=== PATIENT | female | born 1990 | race Caucasian/White ===

== ENCOUNTER 2018-12-07 12:36 | Outpatient (CLI) | payer OTHER ==
[~2018-12-07] VITALS: Ht 167.6 cm; Wt 123.1 kg
[~2018-12-07 12:36] MED LIST: ACHD5005 PO; CYCL10TA9 PO; FLC150T; FLX10C; HYDR-1231 PO; LISD50CA; NAPR-243 PO
[2018-12-07] MEDS ORDERED: OMEP40CA36 PO (12:54)
[2018-12-07] MEDS ORDERED: VITA1CAP PO (12:54)
[2018-12-07] MEDS ORDERED: DULO30CA3 PO (12:54)
[2018-12-07] MEDS ORDERED: RANI-514 PO (12:54)
[2018-12-07] MEDS ORDERED: CARB200T6 PO (12:54)
[2018-12-07] MEDS ORDERED: OMG1KC PO (12:54)
[2018-12-07] MEDS ORDERED: L.AC1CAP6 PO (12:54)
[2018-12-09] MEDS ORDERED: SUCR1TAB36 PO (14:30)
== END 2018-12-07 12:59 | disposition home or self-care (01) ==
LOC: PREOP 12:36
PROVIDERS: ATTEND Surgery
DX: Z01.818 Encounter for other preprocedural examination (principal)

== ENCOUNTER 2018-12-09 13:05 | Day surgery (SDC) | payer OTHER ==
[~2018-12-09] VITALS: Ht 167.6 cm; Wt 123.1 kg
[~2018-12-09 13:05] MED LIST changes: -SUCR1TAB36 PO
[2018-12-09] MEDS ORDERED: NS IV 500 ML 500 ML IV PRN (13:22)
[2018-12-09] MEDS ORDERED: NS IV 500 ML 500 ML ONE (13:24)
[2018-12-09] MEDS ORDERED: MIDAZOLAM 2 MG/2 ML (VERSED) VIAL IVP ONE (13:30)
[2018-12-09] MEDS ORDERED: HURRICAINE EXT TUBE (BENZOCAINE) XX PRN (13:30)
[2018-12-09] MEDS ORDERED: LIDOCAINE JELLY 2% 6 ML SYRINGE MM PRN (13:30)
[2018-12-09] MEDS ORDERED: fentaNYL INJECTION 100 MCG/2 ML AMP IVP ONE (13:30)
[2018-12-09] MEDS ORDERED: LIDOCAINE JELLY 2% 6 ML SYRINGE ONE (13:41)
[2018-12-09] MEDS ORDERED: MIDAZOLAM 2 MG/2 ML (VERSED) VIAL ONE ×4 (13:41)
[2018-12-09] MEDS ORDERED: fentaNYL INJECTION 100 MCG/2 ML AMP ONE (13:41)
[2018-12-09] MEDS ORDERED: HURRICAINE EXT TUBE (BENZOCAINE) ONE (13:41)
[2018-12-09 13:45] VITALS: BP 112/74
[2018-12-09 14:25] VITALS: BP 119/77
--- NOTE | 2018-12-09 14:27 | Progress Note-Pre Operative ---
Pre-Operative Progress Note H&P Reviewed The H&P was reviewed, patient examined and no changes noted. Date Seen by Provider: December 09, 2018 Time Seen by Provider: 13:30 Date H&P Reviewed: December 09, 2018 Time H&P Reviewed: 13:30 Pre-Operative Diagnosis: GERD RICHARD SMART MD December 09, 2018 14:27
--- NOTE | 2018-12-09 14:27 | Conscious Sedation/ASA ---
Conscious Sedation Pre-Proced Time 13:30 ASA Score 2 For ASA 3 and 4: Consider anesthesia and medical clearance. Also, for patients with a history of failed moderate sedation consider anesthesia. Airway Lungs Heart ASA score ASA 1: a normal healthy patient ASA 2: a patient with a mild systemic disease (mid diabetes, controlled hypertension, obesity ASA 3: a patient with a severe systemic disease that limits activity (angina, COPD, prior Myocardial infarction) ASA 4: a patient with an incapacitating disease that is a constant threat to life (CHF, renal failure) ASA 5: a moribund patient not expected to survive 24 hrs. (ruptured aneurysm) ASA 6: a declared brain- patient whose organs are being harvested. For emergent operations, add the letter E after the classification Mallampati Classification Grade 3 Sedation Plan Analgesia, Amnesia, Plan communicated to team members, Discussed options with patient/fam, Discussed risks with patient/fam The patient is an appropriate candidate to undergo the planned procedure, sedation, and anesthesia. The patient immediately re-assessed prior to indication. RICHARD SMART MD December 09, 2018 14:26
--- NOTE | 2018-12-09 14:29 | Progress Note-Post Operative ---
Post-Operative Progess Note Surgeon (s)/Financial Foundations Associate (s) Surgeon RICHARD SMART MD Financial Foundations Associate: none Pre-Operative Diagnosis GERD Post-Operative Diagnosis reflux esophagitis(stage 2), small-moderate HH(2cm), moderate gastritis. Procedure & Operative Findings Date of Procedure 12/09/18 Procedure Performed/Findings EGD with bx. Anesthesia Type cs Estimated Blood Loss Estimated blood loss (mL): minimal Specimens/Packing Specimens Removed ge jxn, antrum RICHARD SMART MD December 09, 2018 14:29
[2018-12-09] MEDS ORDERED: ACETAMINOPHEN 325 MG TABLET PO PRN (14:30)
[2018-12-09] MEDS ORDERED: ONDANSETRON 4 MG/2 ML (SDV) Z0FRAN IV PRN (14:30)
[2018-12-09] MEDS ORDERED: HYDROcodone/APAP 5 MG/325 MG (LORTAB) TAB PO PRN (14:30)
[2018-12-09] MEDS ORDERED: morphine INJ 10 MG/ML 1ML (SYR OR VIAL) IV PRN (14:30)
[2018-12-09] MEDS ORDERED: SUCR1TAB36 PO (14:30)
--- NOTE | 2018-12-09 14:30 | Discharge Inst-Surgical ---
D/C Lap Instructions-KIDO New, Converted, or Re-Newed RX: RX on Chart Follow Up Appt in 6 weeks Activity as tolerated High Fiber Diet 25g or more per day Avoid Alcohol, Caffeine, Spicy [place] and Acid foods. Drink 64 fluid oz or more of fluids per day. Symptoms to Report: Fever over 101 degree F, Nausea/Vomiting If any problems/questions: Contact your physician or go to Emergency Room RICHARD SMART MD December 09, 2018 14:30
[2018-12-09 14:50] VITALS: BP 130/80
[2018-12-09 14:55] VITALS: BP 130/80
--- NOTE | 2018-12-09 23:00 | OPERATIVE REPORT ---
DATE OF SERVICE: 12/09/2018 ATTENDING PRIMARY SERVICE DOG TRAINER: Rosangela Deal APRN PREOPERATIVE DIAGNOSIS: Gastroesophageal reflux disease. POSTOPERATIVE DIAGNOSES: Reflux esophagitis stage II, small to moderate size hiatal hernia approximately 2 cm in size, moderate gastritis. No distal obstructions. PROCEDURE: EGD with biopsy. SURGEON: Richard Smart MD ANESTHESIA: Conscious sedation. ESTIMATED BLOOD LOSS: Minimal. FINDINGS: As above in the postop. DISPOSITION: The patient tolerated the procedure well. INDICATIONS: The patient is a 28-year-old female referred over to us for epigastric pain and reflux. She has a known history gastroesophageal reflux disease for the past 6 to 12 months and has been placed on different medications. She states that this has worsened with epigastric burning sensation and this has also progressed to nausea and vomiting after eating a meal. She does not report any hematemesis, no coffee ground emesis. However, does feel a burning sensation in the epigastric region. She was initially started on Zantac and then recently started on Prilosec. She does have some risk factors, which include smoking as well as caffeinated beverages. DESCRIPTION OF PROCEDURE: The patient was brought to the endoscopy suite in the left lateral decubitus position. After adequate IV pain and sedative medications and conscious sedation anesthesia the mouthpiece was applied. Endoscope was placed in the mouth, visualizing the pharynx and hypopharyngeal region. Vocal cords, epiglottis and vallecula identified and appeared to be normal. The endoscope was then intubated into the esophageal opening and esophagus insufflated. The endoscope was then advanced to the first, second and third portion of esophagus at the level of the GE junction, reflux esophagitis stage II identified. There were no ulcers or strictures identified in this region. A biopsy was taken using forceps with visualization of good hemostasis. The endoscope was then easily advanced in the stomach and endoscope retroflexed, visualizing a small to moderate size hiatal hernia approximately 2 cm in size. There was moderate severity gastritis. No formal ulcerations, polyps or any neoplasms. A biopsy was taken of the antrum to rule out H. pylori with visualization of good hemostasis. Endoscope was then advanced to the pylorus and first and second portion of the duodenum, which appeared normal with no ulcerations or distal obstructions. The endoscope was then slowly withdrawn while taking a second look and suctioning residual air with no additional findings. The patient tolerated the procedure well. We will recommend the necessary lifestyle and diet accommodation including smoking cessation as well as avoidance of caffeinated beverages, spicy, greasy and acidic foods. We also recommend small more frequent meals and avoidance of eating at night as well as head elevation while lying supine. We do want her to continue to take the Prilosec as well as Zantac and we will also add Carafate 1 gram q.i.d. If she has continued reflux and regurgitation despite maximal medical therapy. Our recommendation based on her body mass index would be to do a hiatal hernia repair; however, combined this with a gastric sleeve resection for weight loss, which is also a contributing factor to her gastroesophageal reflux disease. We will discuss this in the office and have her follow up. Job ID: [id number] DocumentID: [id number] Dictated Date: 12/09/2018 14:19:58 Alteration Tailor Apprentice Date: 12/09/2018 22:59:29 Dictated By: RICHARD SMART MD MTDD
== END 2018-12-09 14:55 | disposition home or self-care (01) ==
LOC: ENDO 13:05
PROVIDERS: ATTEND Surgery
DX: K21.0 Gastro-esophageal reflux disease with esophagitis (principal); K44.9 Diaphragmatic hernia without obstruction or gangrene; K29.50 Unspecified chronic gastritis without bleeding; B96.81 Helicobacter pylori [H. pylori] as the cause of diseases classified elsewhere; F17.210 Nicotine dependence, cigarettes, uncomplicated
CPT/HCPCS: 84703

== ENCOUNTER → 2018-12-09 | Outpatient (CLI) | payer OTHER ==
[~2018-12-09] MED LIST changes: +CARB200T6 PO; +DULO30CA3 PO; +L.AC1CAP6 PO; +OMEP40CA36 PO; +OMG1KC PO; +RANI-514 PO; +SUCR1TAB36 PO; +VITA1CAP PO
[2018-12-09 09:36] LABS: BASOPHILS % (AUTO) 0 % (0-10); EOSINOPHILS # (AUTO) 0.1 10^3/uL (0.0-0.3); EOSINOPHILS % (AUTO) 1 % (0-10); HEMATOCRIT 38 % (35-52); HEMOGLOBIN 12.9 G/DL (11.5-16.0); LYMPHOCYTES # (AUTO) 2.7 X 10^3 (1.0-4.0); LYMPHOCYTES % (AUTO) 34 % (12-44); MEAN CORPUSCULAR HEMOGLOBIN 31 PG (25-34); MEAN CORPUSCULAR HGB CONC 34 G/DL (32-36); MEAN CORPUSCULAR VOLUME 93 FL (80-99); MEAN PLATELET VOLUME 9.7 FL (7.4-10.4); MONOCYTES # (AUTO) 0.6 X 10^3 (0.0-1.0); MONOCYTES % (AUTO) 8 % (0-12); NEUTROPHILS # (AUTO) 4.5 X 10^3 (1.8-7.8); NEUTROPHILS % (AUTO) 57 % (42-75); PLATELET COUNT 266 10^3/uL (130-400); RED CELL DISTRIBUTION WIDTH 11.9 % (10.0-14.5); WHITE BLOOD COUNT 7.9 10^3/uL (4.3-11.0)
[2018-12-09 09:39] LABS: BILIRUBIN,URINE NEGATIVE (NEGATIVE); CLARITY,URINE SLIGHTLY CLOUDY; COLOR,URINE YELLOW; GLUCOSE, URINE (UA) NEGATIVE (NEGATIVE); KETONES,URINE NEGATIVE (NEGATIVE); LEUKOCYTE ESTERASE ,URINE 1+ (NEGATIVE); NITRITE,URINE NEGATIVE (NEGATIVE); PH,URINE 7 (5-9); PROTEIN,URINE NEGATIVE (NEGATIVE); UROBILINOGEN,URINE NORMAL (NORMAL)
--- NOTE | 2018-12-09 09:54 | Diagnostic Imaging Report ---
PROCEDURE: CT abdomen and pelvis with and without contrast. TECHNIQUE: Precontrast acquisitions were acquired through the abdomen and pelvis. Multiple contiguous axial images were obtained through the abdomen and pelvis after the administration of intravenous contrast. Auto Exposure Controls were utilized during the CT exam to meet ALARA standards for radiation dose reduction. INDICATION: Abdominal pain, vomiting and diarrhea. COMPARISON: No prior studies are available for comparison. FINDINGS: Lung bases are clear. No discrete liver mass is identified. The gallbladder is surgically absent. No biliary duct dilatation is seen. The pancreas and spleen are unremarkable. No adrenal mass is detected. No renal calculi or hydronephrosis is identified. The aorta is nonaneurysmal. No central retroperitoneal or mesenteric lymphadenopathy is detected. The small and large bowel loops appear to be normal in caliber. There is no obstruction. The appendix is not visualized but no inflammatory changes in the right lower quadrant are identified. The uterus does contain an IUD. Unopacified bladder is unremarkable. There is no ascites. No pelvic lymphadenopathy is seen. IMPRESSION: Essentially unremarkable CT of the abdomen and pelvis. No acute abnormality is detected. Dictated by: Dictated on workstation # [id number]
[2018-12-09 09:56] LABS: ALANINE AMINOTRANSFERASE 19 U/L (0-55); ALBUMIN 3.6 GM/DL (3.2-4.5); ALKALINE PHOSPHATASE 93 U/L (40-136); BILIRUBIN,TOTAL 0.3 MG/DL (0.1-1.0); BUN/CREATININE RATIO 12; CALCIUM 8.8 MG/DL (8.5-10.1); CARBON DIOXIDE 24 MMOL/L (21-32); CHLORIDE 107 MMOL/L (98-107); CHOLESTEROL 264 MG/DL (< 200); CREATININE SERUM 0.67 MG/DL (0.60-1.30); GFR ESTIMATED > 60; GLUCOSE 89 MG/DL (70-105); HDL CHOLESTEROL 39 MG/DL (40-60); SODIUM 138 MMOL/L (135-145); TOTAL PROTEIN 6.2 GM/DL (6.4-8.2); TRIGLYCERIDES 267 MG/DL (<150); VLDL CHOLESTEROL 53 MG/DL (5-40)
[2018-12-09 10:02] LABS: BACTERIA,URINE TRACE /HPF
== END ==
LOC: RAD 08:14
PROVIDERS: ATTEND Registered Nurse
DX: K21.9 Gastro-esophageal reflux disease without esophagitis (principal); F41.9 Anxiety disorder, unspecified; K52.9 Noninfective gastroenteritis and colitis, unspecified; Z90.49 Acquired absence of other specified parts of digestive tract
CPT/HCPCS: 36415; 74178; 80053; 80061; 81000; 84443; 85025; 86677; 87088

== ENCOUNTER 2018-12-30 11:18 | Outpatient (RCR) | payer OTHER ==
[~2018-12-30 11:18] MED LIST changes: +SUCR1TAB36 PO
== END 2019-03-30 | disposition home or self-care (01) ==
LOC: CARD 11:18
PROVIDERS: ATTEND Registered Nurse
DX: R00.2 Palpitations (principal); F41.9 Anxiety disorder, unspecified; E66.9 Obesity, unspecified; Z72.0 Tobacco use
CPT/HCPCS: 93005; 93225; 93226

== ENCOUNTER 2019-04-12 13:48 | Emergency (ER) | payer OTHER, MEDICAID ==
[~2019-04-12] VITALS: Ht 167 cm; Wt 125.0 kg
--- NOTE | 2019-04-12 14:13 | ED GU-Female ---
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 Stated Complaint: VAGINAL BLEEDING;8 WKS History of Present Illness Date Seen by Provider: Apr 12, 2019 Initial Comments With in 2007, blood type documented as A+ Allergies and Home Medications Allergies Coded Allergies: No Known Drug Allergies (Unverified , 12/07/18) Home Medications Diphenhydramine HCl 50 Mg Capsule, 50 MG PO HS, (Reported) Famotidine 20 Mg Tablet, 20 MG PO DAILY, (Reported) Vit #76/Iron,Carb/FA 1 Each Tablet, 1 EACH PO BID, (Reported) Vitamin B Complex 1 Each Capsule, 2 EACH PO DAILY, (Reported) Past Ilnihxo-Bzbkmj-Fokael Hx Patient Social History Alcohol Use: Denies Use Recreational Drug Use: No Smoking Status: Former Smoker Type Used: Cigarettes 2nd Hand Smoke Exposure: Yes Recent Hopitalizations: No Immunizations Up To Date Date of Influenza Vaccine: Apr 25, 2018 Seasonal Allergies Seasonal Allergies: No Past Medical History Surgeries: Yes (, EYE SURGERY WHEN A BABY) Gallbladder Respiratory: No Cardiac: No Neurological: Yes (NONE SINCE AGE 10) Seizure Disorder Reproductive Disorders: No Sexually Transmitted Disease: No HIV/AIDS: No Genitourinary: No Gastrointestinal: Yes (N/V) Gastroesophageal Reflux Musculoskeletal: No Endocrine: No HEENT: Yes (GLASSES) Loss of Vision: Bilateral Hearing Impairment: Denies Cancer: No Psychosocial: Yes Anxiety, Bipolar, Depression Integumentary: Yes Psoriasis Blood Disorders: No Adverse Reaction/Blood Tranf: No (N/A) Physical Exam Vital Signs Vital Signs - First Documented 04/12/19 14:05 Temp 36.7 Pulse 93 Resp 18 B/P (MAP) 133/89 (104) Capillary Refill : Height, Weight, BMI Height: 5'6.00" Weight: 271lbs. 6.0oz. 123.694834aq; 43.8 BMI Method: Progress/Results/Core Measures Suspected Sepsis SIRS Temperature: Pulse: Respiratory Rate: Blood Pressure / Mean: Results/Orders Lab Results Laboratory Tests Test 04/12/19 14:10 Range/Units Urine Color YELLOW Urine Clarity CLEAR Urine pH 5 5-9 Urine Specific [place] 1.025 H 1.016-1.022 Urine Protein 1+ H NEGATIVE Urine Glucose (UA) NEGATIVE NEGATIVE Urine Ketones 1+ H NEGATIVE Urine Nitrite NEGATIVE NEGATIVE Urine Bilirubin NEGATIVE NEGATIVE Urine Urobilinogen NORMAL NORMAL MG/DL Urine Leukocyte Esterase NEGATIVE NEGATIVE Urine RBC (Auto) NEGATIVE NEGATIVE Urine RBC NONE /HPF Urine WBC 0-2 /HPF Urine Squamous Epithelial Cells >50 H /HPF Urine Crystals NONE /LPF Urine Bacteria MODERATE H /HPF Urine Casts NONE /LPF Urine Mucus MODERATE H /LPF Urine Culture Indicated NO My Orders Orders - ADAM KHALIL Urine Bedside (04/12/19 13:51) Us Ob Single Fetus<14 [id number] (04/12/19 14:10) Ua Culture If Indicated (04/12/19 14:10) Vital Signs/I&O 04/12/19 14:05 Temp 36.7 Pulse 93 Resp 18 B/P (MAP) 133/89 (104) Capillary Refill : Departure Impression Primary Impression: Threatened in first trimester Disposition: 01 HOME, SELF-CARE Condition: Improved Departure-Patient Inst. Decision time for Depature: 15:30 Referrals: KERRI ROBBINS MD (PCP) Primary Care Physician Patient Instructions: Threatened Miscarriage (DC) Add. Discharge Instructions: Complete vaginal rest: Nothing in vagina (intercourse, tampons, douching, etc). Continue to take your vitamin. Follow-up with Dr. Mcintosh as needed. Return to emergency department for significant vaginal bleeding, cramping, fainting, or new, urgent concerns. All discharge instructions reviewed with patient and/or family. Voiced understanding. Copy Copies To 1: KENAN MCINTOSH AMY ARNP Apr 12, 2019 14:13
[2019-04-12 14:15] LABS: BILIRUBIN,URINE NEGATIVE (NEGATIVE); CLARITY,URINE CLEAR; COLOR,URINE YELLOW; GLUCOSE, URINE (UA) NEGATIVE (NEGATIVE); KETONES,URINE 1+ (NEGATIVE); LEUKOCYTE ESTERASE ,URINE NEGATIVE (NEGATIVE); NITRITE,URINE NEGATIVE (NEGATIVE); PH,URINE 5 (5-9); PROTEIN,URINE 1+ (NEGATIVE); UROBILINOGEN,URINE NORMAL (NORMAL)
[2019-04-12] MEDS ORDERED: CALC500T7 PO (14:17)
[2019-04-12] MEDS ORDERED: DULO30CA3 PO (14:17)
[2019-04-12] MEDS ORDERED: DIPH50CA75 PO (14:18)
[2019-04-12] MEDS ORDERED: FAMO20TA45 PO (14:19)
[2019-04-12] MEDS ORDERED: PREN-51 PO (14:20)
[2019-04-12 14:23] LABS: BACTERIA,URINE MODERATE /HPF; WBC,URINE 0-2 /HPF
[2019-04-12 14:24] LABS: SQUAMOUS EPITHELIAL CELL,UR >50 /HPF
--- NOTE | 2019-04-12 15:44 | Diagnostic Imaging Report ---
PROCEDURE: US OB SINGLE FETUS <14 WKS. INDICATION: Vaginal bleeding. TECHNIQUE: Multiple real-time grayscale images were obtained of the gravid uterus. CORRELATION STUDY: None FINDINGS: There is presence of an intrauterine fluid collection compatible with gestational sac. Configuration appears generally unremarkable. The placenta cannot be well-visualized at this time. The crown-rump length measures 2.8 cm for an estimated age of 9 weeks 4 days. cardiac activity is at 87 beats per minute. Yolk sac present. Left ovary unable to be visualized, perhaps owing to position or obscuration. Right ovary 3.1 x 2.2 x 2.7 cm generally unremarkable. Overall assessment is fairly limited and compromised on this study. IMPRESSION: 1. Limited obstetrical sonogram imaging demonstrates a viable intrauterine , estimated age 9 weeks 4 days for an estimated date of delivery 11/11/2019. 2. bradycardia. Dictated by: Dictated on workstation # [id number]
[2019-04-12 15:47] VITALS: BP 133/89
== END 2019-04-12 15:47 | disposition home or self-care (01) ==
LOC: EDUNIT# 13:48 → ER 13:50
DX: O20.9 Hemorrhage in early pregnancy, unspecified (principal); O99.351 Diseases of the nervous system complicating pregnancy, first trimester; G40.909 Epilepsy, unspecified, not intractable, without status epilepticus; O99.611 Diseases of the digestive system complicating pregnancy, first trimester; K21.9 Gastro-esophageal reflux disease without esophagitis; O99.341 Other mental disorders complicating pregnancy, first trimester; F41.9 Anxiety disorder, unspecified; F31.9 Bipolar disorder, unspecified; Z3A.08 8 weeks gestation of pregnancy; Z87.891 Personal history of nicotine dependence; Z77.22 Contact with and (suspected) exposure to environmental tobacco smoke (acute) (chronic)
CPT/HCPCS: 76801; 81000; 84703

== ENCOUNTER → 2019-06-22 | Outpatient (CLI) | payer OTHER, MEDICAID ==
[~2019-06-22] MED LIST changes: +CALC500T7 PO; +DIPH50CA75 PO; +FAMO20TA45 PO; +OMEP40CA27 PO; -OMEP40CA36 PO; +PREN-51 PO; -RANI-514 PO; +RANI-607 PO
--- NOTE | 2019-06-22 15:48 | Diagnostic Imaging Report ---
INDICATION: anatomy. TECHNIQUE: Multiple real-time grayscale images were obtained over the gravid uterus. COMPARISON: 04/12/2019. FINDINGS: There is a single live fetus in a transverse presentation, head to the maternal left. heart rate was recorded at 155 BPM. Placenta is posterior. Amniotic fluid volume is normal. Cervical length is 4.3 cm. survey is somewhat limited due to maternal body habitus. kidneys and stomach are unremarkable. There is a four-chamber heart view. The kidneys are limited. brain is limited. Three-vessel cord, cord insertion, and spine are limited. Biometrical measurements are as follows: Biparietal 4.63 cm, age 20 weeks 0 days. Head circumference 16.97 cm, age 16 weeks 5 days. Abdominal circumference 14.87 cm, age 20 weeks 1 days. Femur length 3.16 cm, age 19 weeks 6 days. Sonographic estimate age: 20 weeks 0 days. Sonographic estimated date of delivery: 11/09/2019. Estimated Weight: 323 gm (+/- 47 gm). LMP percentile: 42%. heart rate: 155 beats per minute. number: 1 of 1. IMPRESSION: Single live IUP of 20 weeks 0 days gestational age, showing normal interval growth when compared with prior exam. survey is limited, as described. Follow-up could be performed. Dictated by: Dictated on workstation # [id number]
== END ==
LOC: RAD 14:25
PROVIDERS: ATTEND Nurse Practitioner Women's Health
DX: Z34.92 Encounter for supervision of normal pregnancy, unspecified, second trimester (principal); Z3A.20 20 weeks gestation of pregnancy
CPT/HCPCS: 76805

== ENCOUNTER 2019-09-24 19:03 | Outpatient (CLI) | payer MEDICAID ==
[~2019-09-24] VITALS: Ht 167 cm; Wt 126.0 kg
--- NOTE | 2019-09-24 19:15 | NUR ---
FELICITA MARTINEZ presented to unit via ambulatory from ED, accompanied by s/o, with c/o STOMACH & PELVIC PAIN 34 3/7wks . FELICITA MARTINEZ weighed, gowned, voided, and to bed. EFHM and TOCO applied, VS taken. FELICITA MARTINEZ oriented to bed controls, call light, TV, heat, and A/C controls.
[2019-09-24 19:34] VITALS: BP 143/88
[2019-09-24 19:34] LABS: BILIRUBIN,URINE NEGATIVE (NEGATIVE); CLARITY,URINE CLEAR; COLOR,URINE YELLOW; GLUCOSE, URINE (UA) NEGATIVE (NEGATIVE); KETONES,URINE 3+ (NEGATIVE); LEUKOCYTE ESTERASE ,URINE NEGATIVE (NEGATIVE); NITRITE,URINE NEGATIVE (NEGATIVE); PH,URINE 6.5 (5-9); PROTEIN,URINE TRACE (NEGATIVE)
[2019-09-24 19:48] LABS: RBC,URINE 0-2 /HPF
[2019-09-24 19:49] LABS: AMORPHOUS SEDIMENT,UR FEW AMOR URATES /LPF; BACTERIA,URINE FEW /HPF
[2019-09-24] MEDS ORDERED: LACTATED RINGERS 1,000 ML IV ONE (19:59)
[2019-09-24] MEDS ORDERED: TERBUTALINE INJ 1 MG/ML (BRETHINE) AMP ONE (19:59)
[2019-09-24] MEDS ORDERED: ONDANSETRON 4 MG/2 ML (SDV) Z0FRAN ONE (19:59)
--- NOTE | 2019-09-24 19:59 | NUR ---
notified of pt's arrival and exam. tracing, labs, and sve reported. New orders received.
[2019-09-24 20:00] VITALS: BP 136/82
[2019-09-24] MEDS ORDERED: LACTATED RINGERS 1,000 ML IV SCH (20:15)
[2019-09-24] MEDS ORDERED: ONDANSETRON 4 MG/2 ML (SDV) Z0FRAN IVP ONE (20:15)
[2019-09-24] MEDS ORDERED: TERBUTALINE INJ 1 MG/ML (BRETHINE) AMP SC ONE (20:15)
[2019-09-24] MEDS ORDERED: LURA20TA PO (21:24)
[2019-09-24 21:45] VITALS: BP 127/82
--- NOTE | 2019-09-24 21:45 | NUR ---
Discharge instructions verbalized with pt. pt verbalized understanding. labor precautions given. pt will follow up in clinic. pt dc'd home with s/o at side.
--- NOTE | 2019-09-25 08:28 | Physician Query-Final Dx ---
EL JAIMES 09/25/19 0828: Clinic Account Progress/Dx Physician Query: Please give diagnosis Please include # weeks gestation Date of Service Sep 24, 2019 at 19:03 RHINA VEGA DO 09/26/19 0630: Clinic Account Progress/Dx DIAGNOSIS: Diagnosis Intrauterine at 34 weeks 2. Abdominal Pain 3. Pelvic Pain EL JAIMES Sep 25, 2019 08:28 RHINA VEGA DO Sep 26, 2019 06:30
== END 2019-09-24 21:45 | disposition home or self-care (01) ==
LOC: WSo 19:03 → LDRP 19:03 → WSo 21:45
PROVIDERS: ATTEND Obstetrics & Gynecology
DX: O26.893 Other specified pregnancy related conditions, third trimester (principal); R10.9 Unspecified abdominal pain; R10.2 Pelvic and perineal pain; Z3A.34 34 weeks gestation of pregnancy
CPT/HCPCS: 81000; 87088; 96361; 96372; 96374; 99213

== ENCOUNTER 2019-10-19 18:48 | Inpatient (IN) | payer MEDICAID ==
[~2019-10-19] VITALS: Ht 167.7 cm; Wt 127.6 kg
[~2019-10-19 18:48] MED LIST changes: -DCS100C PO; -HYDR-83 PO; -IBUP-844 PO
--- NOTE | 2019-10-19 18:58 | NUR ---
FELICITA MARTINEZ presented to unit via AMBULATORY from ED, accompanied by S/O, with c/o . FELICITA MARTINEZ weighed, gowned, voided, and to bed. EFHM and TOCO applied, VS taken. FELICITA MARTINEZ oriented to bed controls, call light, TV, heat, and A/C controls.
[2019-10-19] MEDS ORDERED: ceFAZolin 2 GM IV Premixed 50 ML IV ONE (19:01)
[2019-10-19 20:34] VITALS: BP 160/99
[2019-10-19 21:34] VITALS: BP 136/94
[2019-10-19] MEDS: CATHETER FLUSH 10 ML SYR IV SCH (22:10)
[2019-10-19 23:50] VITALS: BP 129/84
[2019-10-20] VITALS (10 sets, daily range): BP systolic 138–151; BP diastolic 83–103
[2019-10-20] MEDS: ACETAMINOPHEN 500 MG TAB (TYLENOL) PO PRN (02:08)
[2019-10-20] MEDS ORDERED: FAMOTIDINE 20MG/2ML IV (PEPCID) ONE (05:18)
[2019-10-20] MEDS ORDERED: ceFAZolin 2 GM IV Premixed 50 ML ONE (05:18)
[2019-10-20] MEDS ORDERED: METOCLOPRAMIDE INJ 10 MG/2 ML (REGLAN) ONE (05:18)
[2019-10-20] MEDS ORDERED: LACTATED RINGERS 1,000 ML IV ONE (05:18)
[2019-10-20] MEDS ORDERED: CITRIC ACID/SOB CIT (BICITRA) 30 ML UDC ONE (05:18)
[2019-10-20] MEDS ORDERED: LACTATED RINGERS 1,000 ML IV PRN (06:36)
[2019-10-20] MEDS: LACTATED RINGERS 1,000 ML IV PRN ×3 (06:42→08:39)
[2019-10-20] MEDS ORDERED: CITRIC ACID/SOB CIT (BICITRA) 30 ML UDC PO ONE (06:45)
[2019-10-20] MEDS ORDERED: FAMOTIDINE 20MG/2ML IV (PEPCID) IV ONE (06:45)
[2019-10-20] MEDS ORDERED: METOCLOPRAMIDE INJ 10 MG/2 ML (REGLAN) IV ONE (06:45)
[2019-10-20] MEDS ORDERED: OXYTOCIN PRE-MIX DRIP 1,000 ML IV ONE (07:20)
[2019-10-20 07:26] LABS: BASOPHILS % (AUTO) 0 % (0-10); EOSINOPHILS % (AUTO) 0 % (0-10); HEMATOCRIT 35 % (35-52); HEMOGLOBIN 11.6 G/DL (11.5-16.0); LYMPHOCYTES % (AUTO) 33 % (12-44); MEAN CORPUSCULAR HEMOGLOBIN 30 PG (25-34); MEAN CORPUSCULAR HGB CONC 33 G/DL (32-36); MEAN CORPUSCULAR VOLUME 90 FL (80-99); MONOCYTES # (AUTO) 0.6 X 10^3 (0.0-1.0); MONOCYTES % (AUTO) 6 % (0-12); NEUTROPHILS # (AUTO) 5.5 X 10^3 (1.8-7.8); NEUTROPHILS % (AUTO) 61 % (42-75); PLATELET COUNT 256 10^3/uL (130-400); RED CELL DISTRIBUTION WIDTH 13.4 % (10.0-14.5); WHITE BLOOD COUNT 9.1 10^3/uL (4.3-11.0)
[2019-10-20] MEDS ORDERED: OXYTOCIN PRE-MIX DRIP 500 ML IV SCH (07:26)
[2019-10-20] MEDS ORDERED: TETANUS,DIPTH,PERTUSS P/F (BOOSTRIX) 0.5 ML VIAL IM SCH (07:30)
[2019-10-20] MEDS ORDERED: ONDANSETRON 4 MG/2 ML (SDV) Z0FRAN IVP PRN (07:30)
[2019-10-20] MEDS ORDERED: MEASLES,MUMPS,RUBELLA 1 EA INJ SC SCH (07:30)
--- NOTE | 2019-10-20 07:34 | History & Physical-OB ---
OB - Chief Complaint & HPI Date/Time Date of Admission: Date of Admission: Oct 19, 2019 at 18:48 Date seen by a Provider: Oct 20, 2019 Time Seen by a Provider: 07:20 Chief Complaint/History OB-Reason for Admission/Chief: Section Hx : 2 Hx Para: 1 Expected Date of Delivery: Nov 09, 2019 Gestational Age in Weeks: 37 Gestational Age in Days: 0 Indication for : desires repeat Other reason for admission: Patient sent to US for elevated BP in office and suspicion for PreE. Admission Nurse Assessment Rev: Yes Allergies and Home Medications Allergies Coded Allergies: No Known Drug Allergies (Unverified , 12/07/18) Home Medications Diphenhydramine HCl 50 Mg Capsule, 50 MG PO HS, (Reported) Famotidine 20 Mg Tablet, 20 MG PO DAILY, (Reported) Lurasidone HCl 20 Mg Tablet, 20 MG PO DAILY, (Reported) Vit #76/Iron,Carb/FA 1 Each Tablet, 1 EACH PO BID, (Reported) Vitamin B Complex 1 Each Capsule, 2 EACH PO DAILY, (Reported) Patient Home Medication List Home Medication List Reviewed: Yes OB - History Hx of Present Care: Yes Ultrasounds: Normal mid trimester US (10/24 BPP last visit) Obstetrical Complications: Pre-eclampsia Medical Complications: None Delivery History Hx Blood Disorders: No Adverse Rxn to Tranfusion: No (N/A) Patient Past Medical History n/a Social History/Family History HIV/AIDS: No Recent Infectious Disease Expo: No Sexually Transmitted Disease: No Alcohol Use: Denies Use Recreational Drug Use: No 2nd Hand Smoke Exposure: Yes Immunizations Date of Influenza Vaccine: May 18, 2019 OB - Admission Exam Physical Exam Vitals: Vital Signs 10/20/19 03:42 Temp 36.8 Pulse 86 Resp 18 B/P (MAP) 143/83 (103) Pulse Ox 97 O2 Delivery Room Air HEENT: NCAT Heart: Rhythm Normal Lungs: Clear Abdomen: Gravid Extremities: Normal Reflexes: Normal Heart Rate: 130's Accelerations: Accelerations Present Decelerations: No Decelerations Short Term Variability: Present Chcf Variability: Average (6-25) Contractions on Admission: >10 Minutes Apart Labs Laboratory Tests Test 10/20/19 07:12 Range/Units White Blood Count 9.1 4.3-11.0 10^3/uL Red Blood Count 3.91 L 4.35-5.85 10^6/uL Hemoglobin 11.6 11.5-16.0 G/DL Hematocrit 35 35-52 % Mean Corpuscular Volume 90 80-99 FL Mean Corpuscular Hemoglobin 30 25-34 PG Mean Corpuscular Hemoglobin Concent 33 32-36 G/DL Red Cell Distribution Width 13.4 10.0-14.5 % Platelet Count 256 130-400 10^3/uL Mean Platelet Volume 11.0 H 7.4-10.4 FL Neutrophils (%) (Auto) 61 42-75 % Lymphocytes (%) (Auto) 33 12-44 % Monocytes (%) (Auto) 6 0-12 % Eosinophils (%) (Auto) 0 0-10 % Basophils (%) (Auto) 0 0-10 % Neutrophils # (Auto) 5.5 1.8-7.8 X 10^3 Lymphocytes # (Auto) 3.0 1.0-4.0 X 10^3 Monocytes # (Auto) 0.6 0.0-1.0 X 10^3 Eosinophils # (Auto) 0.0 0.0-0.3 10^3/uL Basophils # (Auto) 0.0 0.0-0.1 10^3/uL OB - Assessment/Plan/Diagnosis Assessment Assessment: section Admission Dx 29 yo @ 37 weeks Mild PreE BMI 45 4/8 BPP non-reassuring status Admission Status: Inpatient Order (span 2 midnights) Reason for Inpatient Admission: Repeat sections Plan Plan: Section KENAN MCINTOSH DO Oct 20, 2019 07:34
--- NOTE | 2019-10-20 07:35 | NUR ---
PT TRANSFERRED FROM [facility] VIA AMBULATORY IN STABLE CONDITION ACC BY OR STAFF.
[2019-10-20] MEDS ORDERED: HYDR-83 PO (07:37)
[2019-10-20] MEDS ORDERED: IBUP-844 PO (07:37)
[2019-10-20] MEDS ORDERED: DCS100C PO (07:37)
--- NOTE | 2019-10-20 07:38 | Discharge Inst-Women's Service ---
Discharge Inst-Women's Serv Depart Medication/Instructions New, Converted or Re-Newed RX: RX on Chart Problems Reviewed?: Yes Consults/Follow Up Additional Follow Up: Yes Orders/Referrals Dr. Adams in 7-10 days and in 6 weeks Activity Activity: Activity as Tolerated Driving Instructions: No Driving for 1 Week NO SMOKING: NO SMOKING Nothing Inside Vagina: No Douching, No [place], No Tampons Diet Discharge Diet: No Restrictions Symptoms to Report to : Bleeding Excessive, Pain Increased, Fever Over 101 Degrees F, Vaginal Bleeding Increase, Questions/Concerns For Any Problems or Questions: Contact Your Physician Skin/Wound Care Infection Signs and Symptoms: Increased Redness, Foul Odor of Wound, Increased Drainage, Skin Itchy or Has a Rash, Increased Swelling, Temperature Above 101 F Operative Area Clean and Dry: Keep Incision Clean/Dry Stitches/Brent/Dermabond: Dermabond, Care of Stitches Bathing Instructions: KENAN Martinez DO Oct 20, 2019 07:38
[2019-10-20] MEDS: KETOROLAC 30 MG/ML VIAL IV SCH ×2 (10:07→16:56)
[2019-10-20] MEDS: HYDROcodone/APAP 5 MG/325 MG (LORTAB) TAB PO PRN ×2 (11:12→20:26)
--- NOTE | 2019-10-20 11:12 | NUR ---
Lortab 2 PO given for patient's c/o pain rated 9/10. Saltine crackers provided.
[2019-10-20] MEDS: CATHETER FLUSH 10 ML SYR IV SCH (11:21)
[2019-10-20] MEDS: DOCUSATE SODIUM 100 MG (COLACE) CAP PO SCH ×2 (11:21→20:26)
[2019-10-20] MEDS ORDERED: IBUPROFEN 600 MG (MOTRIN) TAB PO SCH (12:00)
--- NOTE | 2019-10-20 12:07 | NUR ---
DR. SMALLWOOD TO PT'S BEDSIDE TO SEE INFANT.
--- NOTE | 2019-10-20 13:46 | OPERATIVE REPORT ---
DATE OF SERVICE: PREOPERATIVE DIAGNOSES: 1. A 29-year-old G2, P1 at 37 weeks gestation. 2. Mild preeclampsia. 3. Nonreassuring biophysical profile of 10/24. 4. BMI greater than 40. POSTOPERATIVE DIAGNOSES: 1. A 29-year-old G2, P1 at 37 weeks gestation. 2. Mild preeclampsia. 3. Nonreassuring biophysical profile of 8. 4. BMI greater than 40. PROCEDURE: Repeat low transverse section. SURGEON: Jax Adams DO [employer] SAL[employer] CONSULTANT: Kim Reagan DNP, who was necessary for retraction and manipulation throughout the procedure. ANESTHESIA: Spinal. ESTIMATED BLOOD LOSS: 500 mL. URINE OUTPUT: 50 mL, clear at the end of the procedure. FLUIDS: 1500 mL lactated Ringer's solution. FINDINGS: A live female weighing 6 pounds 7 ounces, Apgars of 7 and 9. Grossly normal appearing uterus, bilateral fallopian tubes and ovaries. SPECIMEN SENT: Placenta. INDICATIONS FOR PROCEDURE: This 29-year-old female patient who had sought care in my office yesterday, she was seen by my nurse practitioner and found to have blood pressures in the 160s/90s to 100s. She was also sent downstairs for a biophysical profile, which came back 10/24. In the meantime, her labs came back. Her protein creatinine ratio was greater than 0.3 diagnosing her with preeclampsia. Therefore, I discussed with the patient admission overnight as she had just eaten and n.p.o. after midnight on continuous monitoring and plan for repeat in the morning. Risks of procedure were discussed with the patient in detail including risk of bleeding, infection, damage to surrounding structures including but not limited to bowel, bladder, ureter, kidneys, possible need for reoperation, postoperative complications that could occur and ntime frame and spent in the hospital, recovery timeframe and even . After everything was discussed with the patient in detail, consent was obtained, the patient was taken to the operating room. OPERATIVE REPORT IN DETAIL: Once in the operating room, spinal anesthesia was found to be adequate, placed in supine position with leftward tilt, prepped and draped in normal sterile fashion. Timeout was performed. A Pfannenstiel skin incision was then made through the previously existing scar using knife and carried down layer of fascia using Bovie cautery. The fascial incision was extended laterally and then the superior aspect of the fascial incision was then grasped with Adri clamps, tented up and dissected off the underlying rectus muscles. The inferior aspect of the fascial incision was then grasped with Adri clamps, tented upward and dissected off the underlying rectus muscle. Rectus muscle was then dissected down the midline using Cavazos scissors, which exposed the peritoneum, which I entered bluntly and extended using blunt traction. I placed an Fady ring retractor within the peritoneal incision, which offers excellent lateral sidewall retraction. I then identified the lower uterine segment, which was found to be thinned out and make a low transverse incision to the vesicouterine peritoneum and bluntly dissected off the lower uterine segment. I then proceeded with myotomy until membranes were visualized, which fornix extended the uterine incision laterally and superiorly using bandage scissors. Amniotomy was performed, clear fluid was noted. The was found in vertex presentation. With gentle fundal pressure, the infant's head was delivered through the incision where the nares and oropharynx were bulb suctioned. Anterior and posterior shoulders were delivered and the was then brought to the operative field where the cord was doubly clamped and cut and was handed off to waiting nurses in attendance. Cord blood was collected, 3-vessel cord with intact placenta was delivered spontaneously thereafter. IV Pitocin was initiated to facilitate uterine contraction. Uterine fundus confirmed by manual massage. The uterus was then exteriorized and cleared of all endometrial clots and debris. I then proceeded with closing the uterine incision using 0 Vicryl suture in running locked fashion. Second layer of imbricating 0 Monocryl was placed. Excellent hemostasis was noted after doing this. I then placed the uterus back within the pelvis and copiously irrigated the pelvis using normal saline. Once again, no active bleeding noted from any of my dissection planes. I placed Interceed antiadhesive over my low transverse incision and proceeded with closing the peritoneum after I removed the Fady ring retractor. The peritoneum was reapproximated using 3-0 Vicryl suture in a running fashion. The rectus muscle reapproximated using 3-0 Vicryl suture in interrupted fashion. The fascia was reapproximated using 0 Vicryl suture in running fashion. Subcutaneous tissue was reapproximated using 3-0 plain in an interrupted subcutaneous stitch and the skin was reapproximated using 4-0 Monocryl running subcuticular. Dermabond was applied to incision and sterile dressing with adhesive white tape. Two grams Ancef given preoperatively for infection prophylaxis. The patient tolerated the procedure well and sent to recovery in stable condition. Lap and sponge counts were correct at the end of the procedure. Instrument counts correct as well. Job ID: [id number] DocumentID: [id number] Dictated Date: 10/20/2019 09:14:15 Kiss Setter Hand Date: 10/20/2019 13:45:21 Dictated By: DO SAMUEL PRICE
--- NOTE | 2019-10-20 13:55 | NUR ---
PT UP TO THE BATHROOM. PT STEADY ON HER FEET AND DID EXTREMELY WELL. + VOID, + PERICARE PER PT. NO NEEDS VOICED AT THIS TIME. S/O REMAINS AT THE BEDSIDE.
[2019-10-20] MEDS ORDERED: CATHETER FLUSH 10 ML SYR IV SCH (14:00)
--- NOTE | 2019-10-20 16:10 | NUR ---
PT REQUESTING TO SHOWER. SHOWER SET UP. IV AND DRESSING COVERED. S/O AT THE BEDSIDE. NO FURTHER NEEDS VOICED. CALL LIGHT AVAILABLE.
--- NOTE | 2019-10-20 16:58 | NUR ---
PT IN BED. SCDS ON CALVES BILATERALLY. ROUTINE TORADOL GIVEN IVP; SEE EMAR FOR FURTHER. VS OBTAINED. PT DENIES ANY NEEDS OR QUESTIONS AT THIS TIME.
[2019-10-21] MEDS: KETOROLAC 30 MG/ML VIAL IV SCH ×2 (00:07→06:31)
[2019-10-21 00:10] VITALS: BP 151/90
[2019-10-21] MEDS: HYDROcodone/APAP 5 MG/325 MG (LORTAB) TAB PO PRN (04:00)
[2019-10-21 04:40] VITALS: BP 144/94
[2019-10-21 05:52] LABS: BASOPHILS % (AUTO) 0 % (0-10); EOSINOPHILS # (AUTO) 0.1 10^3/uL (0.0-0.3); EOSINOPHILS % (AUTO) 1 % (0-10); HEMATOCRIT 30 % (35-52); HEMOGLOBIN 10.1 G/DL (11.5-16.0); LYMPHOCYTES # (AUTO) 2.5 X 10^3 (1.0-4.0); LYMPHOCYTES % (AUTO) 28 % (12-44); MEAN CORPUSCULAR HEMOGLOBIN 30 PG (25-34); MEAN CORPUSCULAR HGB CONC 34 G/DL (32-36); MEAN CORPUSCULAR VOLUME 91 FL (80-99); MEAN PLATELET VOLUME 10.7 FL (7.4-10.4); MONOCYTES # (AUTO) 0.6 X 10^3 (0.0-1.0); MONOCYTES % (AUTO) 7 % (0-12); NEUTROPHILS # (AUTO) 5.9 X 10^3 (1.8-7.8); NEUTROPHILS % (AUTO) 65 % (42-75); PLATELET COUNT 237 10^3/uL (130-400); RED CELL DISTRIBUTION WIDTH 13.5 % (10.0-14.5); WHITE BLOOD COUNT 9.1 10^3/uL (4.3-11.0)
[2019-10-21 08:30] VITALS: BP 123/80
--- NOTE | 2019-10-21 08:30 | NUR ---
A.M. ASSESSMENT COMPLETED. VSS. PT HAS BEEN CARING FOR IN ROOM. GOOD INTERACTION. PLEASANT AFFECT. NO COMPLAINTS. SET UP SHOWER.
[2019-10-21] MEDS: DOCUSATE SODIUM 100 MG (COLACE) CAP PO SCH (08:41)
--- NOTE | 2019-10-21 09:20 | NUR ---
INFANT TO NURSERY FOR HEARING SCREEN, EXAM, AND [facility] SCREENING.
--- NOTE | 2019-10-21 10:00 | NUR ---
INFANT RETURNED TO MOM VIA OPEN CRIB. SIMILAC SENSITIVE GIVEN PER MOM'S REQUEST.
--- NOTE | 2019-10-21 10:19 | NUR ---
MMR GIVEN SUBQ IN LEFT UPPER ARM.
--- NOTE | 2019-10-21 11:10 | NUR ---
INFANT TO NURSERY FOR EXAM BY DR. PACKER. THIS RN INFORMED DR. PACKER OF [facility] NOTED ON EXAM.
--- NOTE | 2019-10-21 11:39 | Postpartum Progress Note ---
Note Note Day # 1 Subjective: Patient is without complaints. Ambulating, voiding. Tolerating a regular diet without nausea or vomiting. Normal lochia. Pain is well controlled with oral pain medications. Objective: Physical Exam: General - Alert and oriented, no apparent distress Abdomen - Soft, appropriately tender to palpation, non-distended, fundus firm at umbilicus Extremities - no edema, negative Samuel's bilaterally Incision- c/d/i Assessment: POD 1 RLTCS Acute blood loss anemia Mild PreE -BP stable thus far pp Plan: Routine care. Encourage breast feeding. Encourage ambulation. Ferrous sulfate supplementation. Plan for discharge tomorrow, pending release Vitals - Labs Vital Signs - I&O Vital Signs Date Time Temp Pulse Resp B/P (MAP) Pulse Ox O2 Delivery O2 Flow Rate FiO2 10/21/19 08:30 36.6 98 18 123/80 (94) 98 Room Air 10/21/19 04:40 36.6 98 18 144/94 (111) 98 Room Air 10/21/19 00:10 36.7 101 18 151/90 (110) 99 Room Air 10/20/19 21:10 36.9 101 18 144/89 (107) 99 Room Air 10/20/19 16:58 36.7 92 18 141/86 (104) 97 Room Air 10/20/19 13:15 36.5 104 18 147/89 (108) Room Air I & O 10/21/19 07:00 Intake Total 2550 ml Output Total 550 ml Balance 2000 ml Labs Laboratory Tests 10/21/19 05:43: White Blood Count 9.1, Red Blood Count 3.32L, Hemoglobin 10.1L, Hematocrit 30L, Mean Corpuscular Volume 91, Mean Corpuscular Hemoglobin 30, Mean Corpuscular Hemoglobin Concent 34, Red Cell Distribution Width 13.5, Platelet Count 237, Mean Platelet Volume 10.7H, Neutrophils (%) (Auto) 65, Lymphocytes (%) (Auto) 28, Monocytes (%) (Auto) 7, Eosinophils (%) (Auto) 1, Basophils (%) (Auto) 0, Neutrophils # (Auto) 5.9, Lymphocytes # (Auto) 2.5, Monocytes # (Auto) 0.6, Eosinophils # (Auto) 0.1, Basophils # (Auto) 0.0 KENAN MCINTOSH DO Oct 21, 2019 11:39
--- NOTE | 2019-10-21 12:00 | NUR ---
DR. PACKER TO MOM'S ROOM TO DISCUSS NEED TO TRANSFER R/T [facility]. MOM TEARFUL.
--- NOTE | 2019-10-21 12:25 | NUR ---
PT TO NURSERY TO SEE .
[2019-10-21] MEDS: ACETAMINOPHEN 500 MG TAB (TYLENOL) PO PRN (13:00)
--- NOTE | 2019-10-21 13:00 | NUR ---
MOM ABLE TO HOLD PER DR. PACKER.
--- NOTE | 2019-10-21 13:10 | NUR ---
DISCHARGE INSTRUCTIONS REVIEWED WITH COPY TO PT. RXS GIVEN. STATES UNDERSTANDING OF ALL DISCHARGE INSTRUCTIONS AND NEED TO F/U SCHEDULED AND NEEDED. DISCUSSED F/U WILL BE DISCUSSED/DECIDED BY [facility]. CRIB BELONGINGS GIVEN TO MOM. SECURITY TAG D/C'ED. CONFIRMED [facility].
--- NOTE | 2019-10-21 13:38 | NUR ---
TRANSPORT TEAM HERE. GIVEN TO TRANSPORT NURSE.
--- NOTE | 2019-10-21 13:50 | NUR ---
MOM LEFT NURSERY TO GET BELONGINGS TO PREPARE TO LEAVE HOSPITAL.
--- NOTE | 2019-10-21 13:55 | NUR ---
TRANSPORT TEAM TO PT'S ROOM WITH INFANT.
[2019-10-21 14:15] VITALS: BP 123/80
--- NOTE | 2019-10-21 14:15 | NUR ---
DISMISSED AMBULATORY FROM IN STABLE CONDITION TO [facility] BY JOSETTE VALDEZ.
--- NOTE | 2019-10-24 15:03 | Physician Query-Final Dx ---
Final Diagnosis Give Final Diagnosis Please give Final Diagnosis KORINA WOODS Oct 24, 2019 15:02
== END 2019-10-21 14:15 | disposition home or self-care (01) | DRG 787 ==
LOC: LDRP 18:48
PROVIDERS: ADMIT Obstetrics & Gynecology; ATTEND Obstetrics & Gynecology
PROC: 10D00Z1 Extraction of Products of Conception, Low, Open Approach (ICD-10-PCS; principal; 2019-10-20 07:36)
DX: O14.94 Unspecified pre-eclampsia, complicating childbirth (principal); O34.211 Maternal care for low transverse scar from previous cesarean delivery; O90.81 Anemia of the puerperium; D62 Acute posthemorrhagic anemia; Z37.0 Single live birth; Z3A.37 37 weeks gestation of pregnancy; Z23 Encounter for immunization
CPT/HCPCS: 36415; 76805; 76819; 85025; 86850; 86900; 86901; 90707; 94664; 94760

== ENCOUNTER → 2019-10-19 | Outpatient (CLI) | payer MEDICAID ==
[~2019-10-19] MED LIST changes: +DCS100C PO; +HYDR-83 PO; +IBUP-844 PO; +LURA20TA PO; +PHENYLEPHRINE 100 MCG/ML 10 ML (ANESTHESIA) SYR ONE; +fentaNYL INJECTION 100 MCG/2 ML AMP ONE
--- NOTE | 2019-10-19 16:59 | Diagnostic Imaging Report ---
INDICATION: , hypertension. TECHNIQUE: Multiple real-time grayscale images were obtained over the gravid uterus. COMPARISON: 06/22/2019. FINDINGS: There is a single live intrauterine gestation in cephalic presentation. The cervix measures 4 cm in length and is partially obscured by the head. No funneling or endocervical fluid is seen. Biometric measurements are given below. heart rate measures 143 BPM. The placenta is fundal without evidence of previa. The amniotic fluid index measures 9.3 cm, which is within normal limits. The right kidney is seen. The anatomic survey remains limited due to body habitus, as described on the prior report. The biophysical profile score is 4/8, with no points given for breathing or for tone. 2 points each were given for movements and amniotic fluid. Biometrical measurements are as follows: Biparietal 9.84 cm, age 40 weeks 3 days. Head circumference 34.63 cm, age 40 weeks 1 days. Abdominal circumference 35.54 cm, age 39 weeks 4 days. Femur length 7.01 cm, age 36 weeks 0 days. Sonographic estimate age: 39 weeks 1 days. Sonographic estimated date of delivery: 10/25/19. Estimated Weight: 3627 gm (+/- 530 gm). LMP percentile: 96%. heart rate: 143 beats per minute. number: 1 of 1. IMPRESSION: 1. Single live intrauterine gestation measuring at 39 weeks and 1 day, which is within range of the clinical dates of 36 weeks and 5 days. heart rate and amniotic fluid are normal. 2. Biophysical profile score of 4/8, with no points given for breathing or tone. 3. Anatomic evaluation remains suboptimal, as described on the prior report. Findings were reported to Dr. Adams at 1635 hours by the installment account checker following the exam. Dictated by: Dictated on workstation # [id number]
== END ==
LOC: RAD 14:34
PROVIDERS: ATTEND Nurse Practitioner Women's Health
DX: O13.3 Gestational [pregnancy-induced] hypertension without significant proteinuria, third trimester (principal); Z3A.39 39 weeks gestation of pregnancy
CPT/HCPCS: 76805; 76819

== ENCOUNTER → 2019-10-19 | Outpatient (CLI) | payer MEDICAID ==
[~2019-10-19] MED LIST changes: -PHENYLEPHRINE 100 MCG/ML 10 ML (ANESTHESIA) SYR ONE; -fentaNYL INJECTION 100 MCG/2 ML AMP ONE
== END ==
LOC: LABNPT 14:40
PROVIDERS: ATTEND Obstetrics & Gynecology
DX: O16.3 Unspecified maternal hypertension, third trimester (principal)
CPT/HCPCS: 82570; 84156